=== PATIENT | male | born 1960 | race Hispanic/Latino ===

== ENCOUNTER 2017-02-18 14:27 | Emergency (ER) | payer OTHER ==
[~2017-02-18] VITALS: Ht 182.9 cm; Wt 77.3 kg
[~2017-02-18 14:27] MED LIST: ARIP5TAB5 PO; DIAZ5TAB PO; MIRT15TA PO; PROZ20 PO; TRAM-14 PO
[2017-02-18 14:30] VITALS: BP 134/89; PULSE 57; RESP 16; O2SAT 96
--- NOTE | 2017-02-18 14:46 | ED.REPORT ---
HPI-Chest Pain 40 and Over Date of Service February 18, 2017 ED Provider: Jarrell Alonso MD 56 year old male presents to the ER complaining of three days of constant substernal chest pain. Pain is exacerbated with deep inspiration. Associated symptom of SOB. Patient denies abdominal pain and fever. He states that he recently ceased taking his risperidone. Nursing Notes Stated Complaint: CHEST PAIN, DEPRESSION Chief Complaint: Chest Pain-Non Cardiac Nature Nursing Notes Reviewed: Yes Allergies: Coded Allergies: No Known Allergies (Verified , 11/02/14) Scheduled Aripiprazole (Abilify) 5 Mg Tablet 5 MG PO DAILY Diazepam (Valium) 5 Mg Tablet 2.5 MG PO HS Fluoxetine (Prozac) 20 Mg Cap 20 MG PO DAILY Tramadol (Ultram) 50 Mg Tablet 50 MG PO TID Scheduled PRN Mirtazapine (Remeron) 15 Mg Tablet 15 MG PO HS PRN PRN For Insomnia General Time Seen by MD: 14:44 Chief Complaint Chest pain Hx Obtained From: Patient Arrived By: Wheelchair Sudden in Onset?: No Onset Occurred: 3 days ago Symptom Duration: 1 - 15 minutes Location: : Substernal Quality: Painful Severity: Current: Moderate Severity: Maximum: Moderate Associated with: Denies: Fever Similar Sx Previous: No Risk Factors Well's Criteria for PE Most likely due to PE (3) Well's PE Score: 3-6 pts (mod risk 20.5%) Past Medical History Past Medical History Multiple care center admissions Chronic Shoulder pain (awaiting another surgical intervention anticipated for 11/2014) Reports: Mental illness, Denies: Asthma, COPD, Congestive heart failure, Coronary artery disease, Diabetes mellitus Denies: Atrial fibrillation Past Surgical History shoulder surgeries Smoking History Never Smoker Social History Alcohol Use: Denies alcohol use Drug Use: Denies drug use Ambulatory Status Independent Review of Systems Constitutional: Denies: Chills, Fever Respiratory: Reports: Shortness of breath, Denies: Non-productive cough Cardiovascular: Reports: Chest pain GI: Denies: Abdominal pain, Nausea, Vomiting Musculoskeletal: Denies: Extremity pain, Extremity swelling, Neck pain Neurologic: Denies: Headache Complete sys rev & neg: except as marked. Physical Exam Initial Vital Signs Vital Signs (First) Date Time Temp Pulse Resp B/P Pulse Ox O2 Delivery O2 Flow Rate FiO2 02/18/17 14:30 36.6 57 16 134/89 96 Room Air Initial VS: Reviewed Head / Eyes: Atraumatic, Normocephalic, PERRL Neck: Supple, Non-tender, Full range of motion Extremities: Vascular intact, Neuro intact, No swelling, No tenderness Skin: Warm, Dry, No cyanosis Neurologic: Alert, Oriented, Nonfocal General/Constitutional: Awake, Alert, Well appearing, Well developed, Well nourished Respiratory / Chest: Breath sounds NL, Breath sounds = bilat, No respiratory distress, No rales, No rhonchi, No wheezing, No stridor, No chest tenderness Cardiovascular: Heart rate NL, Regular rhythm, Heart sounds NL, No murmurs, Peripheral circulation NL, Pulses = bilaterally, No gross BP differential Abdomen: Soft, Non-tender, No guarding, No rebound, No distention Back: Full range of motion, No midline vertebral tend Recent postoperative surgical scar, left posterior chest Upper Extremity / MS: Full range of motion, Neurologic intact, Vascular intact Left arm in sling. Re-Eval/Medical Decision Source of Hx: Old records Time of Eval: 15:06 Re-Evaluation/Progress Note: I went back into the room to discuss which tests that would be ordering and found that the Patient had left the building. I checked with front office spec staff and they endorsed the fact that they had seen a gentleman with a left arm sling relieved just a few moments earlier. He did not declare his intent to leave to anyone. Discharge & Departure Primary Impression: Chest pain Disposition: AGAINST MEDICAL ADVICE Discharge Condition All VS Reviewed: Yes Referrals: Guille Torres MD (PCP) Jessicaibpiper Attestation Portions of this note were transcribed by Sara Schaffer. I, Dr. Alonso, personally performed the history, physical exam and medical decision-making; I reviewed and confirmed the accuracy of the information in the transcribed note. Signed by: Kumar Mehta, 02/18/2017 at 15:17 copies to: Guille Torres MD, Kirk H MD February 18, 2017 14:46 SARA SCHAFFER February 18, 2017 14:55
== END 2017-02-18 14:55 | disposition left against medical advice (07) ==
LOC: SED 14:27
DX: R07.9 Chest pain, unspecified (principal); R06.02 Shortness of breath; F32.9 Major depressive disorder, single episode, unspecified

== ENCOUNTER 2017-03-28 21:11 | Emergency (ER) | payer SELFPAY ==
[~2017-03-28] VITALS: Ht 182.9 cm; Wt 81.8 kg
[2017-03-28 21:14] VITALS: BP 142/92; PULSE 93; RESP 18; O2SAT 97
--- NOTE | 2017-03-28 22:36 | ED.REPORT ---
HPI-Psychiatric Illness Date of Service Mar 28, 2017 ED Provider: Brady Cobos MD The patient is a 56 year old male who presents to the ED due to suicidal ideation for the past 2-3 weeks. The pt was sent to the ED by Dr. Chu in [place] at [facility]. The doctor has written a note explaining the pt's recent suicidal statements. Per doctor's note, pt needs to be evaluated and treated. During triage, the patent was asked about current thoughts of suicide and plan and responded, "no" and "maybe tonight." He has had previous psych hospitalizations before. He was last seen for similar symptoms at [facility] 11/16/14. In the room, the patient explains that he has run out of his medication, Mirtazapine and Respirtone. He now feels like he is going crazy, voices are talking to him and he is seeing shadows. The voices are telling him to "shut up , go away, you're dumb." Two days ago, he had suicidal thoughts, which is when he called his doctor who told him to come to the ED. He has not done anything to hurt himself but has thought about it. Pt states that he feels safe in the ED. He hasn't slept in 3 days. He has been trying to establish a new pcp as his doctor recently went to [facility]. The pt lives at home with a few other family members. The patient has also had a slight cough. He denies fever. Nursing Notes Stated Complaint: SUICIDAL Chief Complaint: Psychiatric Complaint Nursing Notes Reviewed: Yes Allergies: Coded Allergies: No Known Allergies (Verified , 03/28/17) Scheduled Aripiprazole (Abilify) 5 Mg Tablet 5 MG PO DAILY Diazepam (Valium) 5 Mg Tablet 2.5 MG PO HS Fluoxetine (Prozac) 20 Mg Cap 20 MG PO DAILY Tramadol (Ultram) 50 Mg Tablet 50 MG PO TID Scheduled PRN Mirtazapine (Remeron) 15 Mg Tablet 15 MG PO HS PRN PRN For Insomnia General Time Seen by MD: 22:35 Chief Complaint Suicidal ideation Hx Obtained From: Patient Arrived By: Walk-in Onset Occurred: More than a week ago... (3 weeks) Symptom Duration: Since onset Progression Since Onset: Gradually worsening Recent Healthcare: Recent doctor visit Similar Sx Previous: Yes Risk-Psychiatric Illness Suicide Risk Stratification Suicide Risk Factors - Adult: : Prior psych admissionNo: Access to firearms, Alcohol use, Family Hx of Suicide, Substance abuse RF Statements: Risk factors reviewed Past Medical History Past Medical History Multiple care center admissions Chronic Shoulder pain (awaiting another surgical intervention anticipated for 11/2014) Reports: Mental illness Past Surgical History shoulder surgeries Smoking History Never Smoker Social History Alcohol Use: Denies alcohol use Drug Use: Denies drug use Other Social History: Good social support, Local resident Ambulatory Status Independent Review of Systems Constitutional: Denies: Fever Respiratory: Reports: Non-productive cough Neurologic: Denies: Change LOC, Dizziness, Headache, Lightheaded Psychiatric: Reports: Anxiety, Depression, Hallucinations, auditory, Hallucinations, visual, Insomnia, Stress, Suicidal ideation, Denies: Homicidal ideation, Hostile Complete sys rev & neg: except as marked. Physical Exam Initial Vital Signs Vital Signs (First) Date Time Temp Pulse Resp B/P Pulse Ox O2 Delivery O2 Flow Rate FiO2 03/28/17 21:14 37.0 93 18 142/92 97 Room Air Initial VS: Reviewed General/Constitutional: Awake, Alert, Cooperative Behavior: Positive: Anxious Neurologic: Oriented X3, Speech NL, No motor deficits Psychiatric: Not homicidal Abnormal Mood/Affect: Positive: Depressed Abnormal Thinking / Perception: Positive: Hallucinations, auditory, Hallucinations, visual, Suicidal, no plan Suicidal but does not elaborate a plan good insight normal judgement speech normal Head / Eyes: Atraumatic, Normocephalic, PERRL, EOMI ENT: Atraumatic, Mucous membranes moist Respiratory / Chest: Atraumatic, No respiratory distress Cardiovascular: Heart rate NL, Regular rhythm, Heart sounds NL Abdomen: Atraumatic, Soft, Non-tender Skin: Atraumatic, Color NL, No rash Neck: Atraumatic, Supple Upper Extremity / MS: Atraumatic, Inspection NL, Full range of motion, No deformity splint on L arm Lower Extremity / Pelvis / MS: Atraumatic, Inspection NL, Full range of motion , No deformity Interpretation & Diagnostics Lab Results Interpretation Result Diagram: 03/28/17 2346 Test 03/28/17 23:46 03/28/17 23:47 White Blood Count 9.0th/mm3 (3.8-10.1) Red Blood Count 4.61mil/mm3 (4.40-5.80) Hemoglobin 14.2g/dL (13.8-17.2) Hematocrit 41.3% (41.0-50.0) Mean Corpuscular Volume 89.6fL (81-100) Mean Corpuscular Hemoglobin 30.8pg (27.0-35.0) Mean Corpuscular Hemoglobin Concent 34.4% (32.0-37.0) Red Cell Distribution Width 13.7% (12.3-15.4) Platelet Count 230bil/L (150-400) Neutrophils (%) (Auto) 56.4% (40-74) Lymphocytes (%) (Auto) 32.3% (14-46) Monocytes (%) (Auto) 9.2% (4-12) Eosinophils (%) (Auto) 1.3% (0-5) Basophils (%) (Auto) 0.6% (0-3) Hold Bryant Top Tube Received (Received) Lab Results Interpretation: Breathalyzer 0 Urine-tox negative Re-Eval/Medical Decision Med Decision/Clinical Course 56 year old man with known depression and psychotic features who presents with suicidal ideation without plan. He does not presently have an established psychiatrist. He has an appointment at [facility] in a couple weeks. Will observe in ED till evaluation can be completed. In the meantime, will initiate medication. Given his recent insomnia, will give Mirtazapine 30 tonight as well as a dose of Respirtone, outpatient dose of Respirtone is unknown. Pt offered re -start of his meds and discharge or crisis respite, declined crisis and did not feel safe to discharge Re-Evaluation/Progress #1: Time of Eval: 23:12 Re-Evaluation/Progress Note: Pt checked. Discussed treatment options with patient. Plan for blood work, medication, and admission. The patient does not feel safe being discharged on medication. He understands that if he is admitted to the hospital, he will not be able to be evaluated until later in the day tomorrow. Pt understands and agrees with plan. All questions addressed. Re-Evaluation/Progress #2: Time of Eval: 23:27 Re-Evaluation/Progress Note: Pt care will be signed over to Dr. Jossue Mott. Counseled Regarding: Diagnosis, Lab results, Need for admission Discharge & Departure Shift Change Sign-Out Patient Care Transferred: Yes Discussed Complaint(s): Yes Laboratory Evaluation: Ordered, not yet done Input from Consult: Care transferred to Dr. Jossue Mott. Labs ordered, awaiting urine for utox, Mental health eval needed in am, he may feel better after some sleep and I do not think he is detainable. Impression: Primary Impression: Suicidal ideation Additional Impression: Depression Depression Type: unspecified Qualified Code: F32.9 - Major depressive disorder, single episode, unspecified Discharge Condition All VS Reviewed: Yes Condition: Stable Referrals: Watson Slaughter MD (PCP) Scribe Attestation Portion of this note were transcribed by Celsa Llanos. I, Dr. Cobos, personally performed the history, physical exam, and medical decision-making: I reviewed and confirmed the accuracy for the information in the transcribed note. Signed by: tato Mclean, 03/28/17 0947 copies to: Watson Slaughter MD, Donald L MD Mar 28, 2017 22:36 Celsa Llanos Mar 28, 2017 22:43
[2017-03-28] MEDS ORDERED: risperiDONE 1 mg Tablet PO ONE (23:15)
[2017-03-28 23:52] LABS: BASOPHILS % (AUTO) 0.6 % (0-3); EOSINOPHILS % (AUTO) 1.3 % (0-5); MONOCYTES % (AUTO) 9.2 % (4-12); Mean Corpuscular Hemoglobin 30.8 pg (27.0-35.0); Mean Corpuscular Volume 89.6 fL (81-100); NEUTROPHILS % (AUTO) 56.4 % (40-74); Platelet Count 230 bil/L (150-400)
[2017-03-29] MEDS ORDERED: risperiDONE 2 mg Tablet PO ONE ×2 (01:05→15:30)
[2017-03-29] MEDS ORDERED: LORazepam 1 mg Tablet PO ONE (03:30)
[2017-03-29 07:06] VITALS: BP 119/62; O2SAT 94
[2017-03-29] MEDS ORDERED: risperiDONE 2 mg Tablet PO SCH (15:05)
[2017-03-29] MEDS ORDERED: RISP3TAB3 PO (15:29)
[2017-03-29] MEDS ORDERED: risperiDONE 1 mg Tablet PO ONE (15:45)
== END 2017-03-29 16:45 | disposition home or self-care (01) ==
LOC: SED 21:11
DX: R45.851 Suicidal ideations (principal); F32.9 Major depressive disorder, single episode, unspecified; G47.00 Insomnia, unspecified

== ENCOUNTER 2017-04-21 16:34 | Emergency (ER) | payer OTHER ==
[~2017-04-21] VITALS: Ht 182.9 cm; Wt 81.8 kg
[~2017-04-21 16:34] MED LIST changes: +RISP3TAB3 PO
[2017-04-21 16:44] VITALS: BP 148/103; PULSE 79; RESP 16; O2SAT 99
--- NOTE | 2017-04-21 16:52 | ED.REPORT ---
HPI-General Illness Date of Service Apr 21, 2017 ED Provider: Ari Mancilla MD The patient is a 56 year old male who presents to the ED c/o stabbing, left upper back pain increasing in severity over the past week. He had surgery at [facility] 3 months ago on his mid-back. A week ago the pain became increasingly worse. He states he cannot even move now. He denies any falls or injuries to the area, chest pain, nausea, vomiting, shortness of breath, or difficulty breathing. He has been taking Ibuprofen for pain. Nursing Notes Stated Complaint: PAIN FROM SURGERY Chief Complaint: General Complaint Nursing Notes Reviewed: Yes (Slingjot not reconciled) Allergies: Coded Allergies: No Known Allergies (Verified , 04/21/17) Scheduled Aripiprazole (Abilify) 5 Mg Tablet 5 MG PO DAILY Diazepam (Valium) 5 Mg Tablet 2.5 MG PO HS Fluoxetine (Prozac) 20 Mg Cap 20 MG PO DAILY Risperidone (Risperidone) 3 Mg Tablet 3 MG PO DAILY Tramadol (Ultram) 50 Mg Tablet 50 MG PO TID Scheduled PRN Hydrocodone-Acetaminophen 5-325 mg (Hydrocodone-Acetaminophen 5-325 mg) 1 Each Tablet 1-2 TABLET PO Q6H PRN PRN For Pain In [place] please Mirtazapine (Remeron) 15 Mg Tablet 15 MG PO HS PRN PRN For Insomnia General Time Seen by MD: 16:50 Chief Complaint Other (left upper back pain) Hx Obtained From: Patient Arrived By: Walk-in Sudden in Onset?: Yes Onset Occurred: 1 week ago Symptom Duration: Since onset Location: : Back Quality: Painful Severity: Current: Moderate Recent Healthcare: Recent doctor visit, Previous surgery Similar Sx Previous: Yes Past Medical History Past Medical History Merged With [facility] care center admissions Chronic Shoulder pain Reports: Mental illness Past Surgical History shoulder surgeries Smoking History Never Smoker Social History Alcohol Use: Denies alcohol use Drug Use: Denies drug use Other Social History: Good social support, Local resident Ambulatory Status Independent Review of Systems Full Review of Systems Respiratory: Denies: Shortness of breath Cardiovascular: Denies: Chest pain GI: Denies: Nausea, Vomiting Musculoskeletal: Reports: Back pain, Extremity pain Neurologic: Denies: Change LOC, Dizziness, Lightheaded, Syncope Complete sys rev & neg: except as marked. Physical Exam Vital Signs Vital Signs Date Time Temp Pulse Resp B/P Pulse Ox O2 Delivery O2 Flow Rate FiO2 04/21/17 16:44 36.8 79 16 148/103 99 Room Air Initial VS: Reviewed, Vital signs normal General/Constitutional: Awake mildly uncomfortable Head / Eyes: Atraumatic, Normocephalic, PERRL Respiratory / Chest: Atraumatic, Breath sounds NL, Breath sounds = bilat Cardiovascular: Heart rate NL, Regular rhythm, Heart sounds NL Back: No muscle spasm paraspinal incision along left side of spine incision site is completely healed Upper Extremities Upper Extremities Normals: Shoulder R exam normal left arm is in a sling Neurologic: Oriented X3, Speech NL Psychiatric: Affect NL, Mood NL does not apear psychotic or unpleasant Interpretation & Diagnostics X-Ray Chest Interpretation Chest Xray Interpretation: IMPRESSION: No acute cardiopulmonary disease. Surgical hardware at the medial border of the left scapula appears intact. Dictated by: Bala Dodd M.D. on 04/21/2017 at 17:44 Approved by: Bala Dodd M.D. on 04/21/2017 at 17:46 View: Portable Interpretation / Wet Read by: Interpret - Radiologist Re-Eval/Medical Decision Med Decision/Clinical Course This is a 56-year-old male who presents to the emergency department complaining of left scapular discomfort following surgery several months ago at [facility]. The pains really been acting up over the past week, denies any trauma, denies fevers or chills, denies any new numbness weakness or paresthesia other than some chronic numbness around the shoulder. He denies chest pain or shortness of breath, cough. Porcine discomfort has been really bothering some and is waking to the department. He is wearing his special sling. On arrival his normal vitals, does not appear any distress. The surgical incision along the thoracic midline is entirely normal and healed. There are no signs of infection or complication. Arms neurovascularly intact except for some chronic numbness of around the shoulder which she says is been long-standing. He has no swelling or signs of DVT or complication. The rest of exam is normal. The patient's very concerned and wanted radiographs to verify the hardware change. Plain radiographs of the chest PA and lateral were negative for acute pathology and this hardware does appear intact. He received a dose of hydrocodone with marked improvement. I am not finding evidence of dangerous complication. Reassurance is provided. I am providing a short course of some when necessary hydrocodone and advised to call [facility] tomorrow to discuss close follow-up with is surgeons as his current appointment is more than a month out. he was discharged in much improved condition. Source of Hx: Old records Counseled Regarding: Diagnosis, Lab results, Need for follow-up, When/why to return to ED Discharge & Departure Primary Impression: Back pain Back pain location: thoracic back pain Chronicity: acute Back pain laterality: left Qualified Code: M54.6 - Pain in thoracic spine Disposition: Home Discharge Condition All VS Reviewed: Yes Condition: Stable Additional Instructions: 1. A dangerous cause of the upper back pain was not identified. 2. Your x-ray was normal, and his surgical hardware from her surgery months ago appears intact. 3. I have written for a few hydrocodone to take for the pain if needed. Please use sparingly. Note: This medication does contain a narcotic and causes drowsiness, no driving for at least 4-6 hours. 4. Please call your doctors at [facility] tomorrow, and let them know that he had enough pain that he had to come into the emergency Department -to see if they need to reschedule your follow up reevaluation. 5. If you develop new or worsening symptoms-return to the emergency department. Referrals: Watson Slaughter MD (PCP) Scribe Attestation Portion of this note were transcribed by Celsa Llanos. I, Dr. Mancilla, personally performed the history, physical exam, and medical decision-making: I reviewed and confirmed the accuracy for the information in the transcribed note. Signed by: tato Mclean, 04/21/17 1800 copies to: Watson Slaughter MD, Matthew F MD Apr 21, 2017 16:52 Celsa Llanos Apr 21, 2017 17:00
[2017-04-21] MEDS ORDERED: HYDROcodone-APAP 5-325 mg Tablet PO ONE (17:00)
--- NOTE | 2017-04-21 17:48 | DRSVH ---
PROCEDURE: X-RAY CHEST, TWO VIEWS ([id number]) INDICATIONS: 56 year-old male with worsening left scapular area chest pain. TECHNIQUE: 2 views of the chest were acquired. COMPARISON: [facility], , CHEST 1VW (PORTABLE), 11/15/2014, 20:24. [facility], CR, CHEST 1VW (PORTABLE), 09/03/2013, 23:51. [facility], , CHEST 1VW (PORTABLE), 03/10/2012, 17:35. FINDINGS: Surgical changes and devices: Medial left scapular region surgical hardware is now present. Lungs and pleura: No pleural effusions or pneumothorax. Lungs are clear. Mediastinum: Mediastinal contours are normal. Heart size is normal. Bones and chest wall: No suspicious bony abnormalities. Soft tissues appear unremarkable. IMPRESSION: No acute cardiopulmonary disease. Surgical hardware at the medial border of the left scap aleisha appears intact. Dictated by: Bala Dodd M.D. on 04/21/2017 at 17:44 Approved by: Bala Dodd M.D. on 04/21/2017 at 17:46
[2017-04-21] MEDS ORDERED: HYDR-4003 PO (18:04)
[2017-04-21 18:25] VITALS: BP 151/106; PULSE 80; O2SAT 96
== END 2017-04-21 18:26 | disposition home or self-care (01) ==
LOC: SED 16:34
DX: M54.6 Pain in thoracic spine (principal); M25.519 Pain in unspecified shoulder; G89.29 Other chronic pain; Z98.890 Other specified postprocedural states